=== PATIENT | female | born 1990 | race Caucasian/White ===

== ENCOUNTER 2018-04-05 00:45 | Emergency (ER) | payer OTHER, MEDICAID ==
[~2018-04-05] VITALS: Ht 157.5 cm; Wt 72.6 kg
[2018-04-05] MEDS ORDERED: PRENATAL (00:56)
[2018-04-05 00:57] VITALS: BP 128/58
== END 2018-04-05 01:15 | disposition home or self-care (01) ==
LOC: M.ERS 00:45
DX: O26.892 Other specified pregnancy related conditions, second trimester (principal); L03.317 Cellulitis of buttock; Z3A.27 27 weeks gestation of pregnancy